=== PATIENT | male | born 1955 | race Caucasian/White ===

== ENCOUNTER 2017-04-24 21:49 | Emergency (ER) | payer OTHER ==
[~2017-04-24] VITALS: Ht 193 cm; Wt 87.3 kg
[~2017-04-24 21:49] MED LIST: ASPI81TA2 PO; LEVO125T2 PO
[2017-04-24 21:52] VITALS: BP 164/83; PULSE 70; RESP 16; O2SAT 100
--- NOTE | 2017-04-24 22:04 | ED.REPORT ---
HPI-General Illness Date of Service Apr 24, 2017 ED Provider: Garry Staley MD Pt is a 61 y.o. male with a hx of thyroidectomy secondary to cancer who presents to the ED c/o irregular palpitations onset tonight. The pt describes the palpitations as "fluttering" and states it only occurred when he was lying in his recliner. He states his symptoms have since resolved. Denies chest pain, SOB, cough, and edema. He denies a hx of CAD, UT, and smoking. Nursing Notes Stated Complaint: IRREGULAR HEART BEAT Chief Complaint: Dysrhythmia/Cardiac Nursing Notes Reviewed: Yes Allergies: Coded Allergies: No Known Allergies (Unverified Allergy, Unknown, 04/24/17) Scheduled Aspirin-Expunged Drug, Do Not Renew! (Aspirin-Expunged Drug, Do Not Renew!) 81 Mg Tab 81 MG PO DAILY Levothyroxine-Expunged Drug, Do Not Renew! (Synthroid-Expunged Drug, Do Not Renew!) 125 Mcg Tablet 0.125 MG PO DAILYAC 0.125 MG = 125 MCG General Time Seen by MD: 22:03 Chief Complaint Other (Palpitations, irregular) Hx Obtained From: Patient Arrived By: Walk-in Sudden in Onset?: Yes Onset Occurred: Just prior to arrival Symptom Duration: Intermittent Severity: Current: No pain currently Severity: Maximum: No pain Recent Healthcare: No recent doctor visit, No recent hospitalization Similar Sx Previous: No Past Medical History Past Medical History Reports: Cancer Reports: Thyroid disease Past Surgical History thyroidectomy Review of Systems Full Review of Systems Respiratory: Denies: Non-productive cough, Shortness of breath Cardiovascular: Reports: Palpitations (Irregular), Denies: Chest pain, Edema Complete sys rev & neg: except as marked. Physical Exam Vital Signs Vital Signs Date Time Temp Pulse Resp B/P Pulse Ox O2 Delivery O2 Flow Rate FiO2 04/25/17 01:52 36.4 61 16 148/76 96 Room Air 04/25/17 01:11 62 12 139/77 99 Room Air 04/24/17 23:40 64 14 136/73 100 Room Air 04/24/17 21:52 36.4 70 16 164/83 100 Room Air Initial VS: Reviewed Abdomen / GI: No distention Extremities: Vascular intact, Neuro intact Skin: Warm, Dry, No cyanosis Neurologic: Alert, Oriented, Nonfocal Psychiatric: Mood/affect normal, Behavior normal, Normal thought content General/Constitutional: Awake, Alert, No acute distress, Well appearing, Well developed, Well hydrated, Well nourished, Not toxic appearing Head / Eyes: Atraumatic, Normocephalic, PERRL Respiratory / Chest: Atraumatic, Breath sounds NL, Breath sounds = bilat, No respiratory distress Cardiovascular: Heart rate NL, Regular rhythm, Heart sounds NL, No gallop, No murmurs, No rubs, Cap refill not delayed, Peripheral circulation NL Interpretation & Diagnostics Lab Results Interpretation Result Diagram: 04/24/17 2333 04/24/17 2333 Test 04/24/17 23:33 White Blood Count 4.2th/mm3 (3.8-10.1) Red Blood Count 4.72mil/mm3 (4.40-5.80) Hemoglobin 14.5g/dL (13.8-17.2) Hematocrit 42.1% (41.0-50.0) Mean Corpuscular Volume 89.2fL (81-100) Mean Corpuscular Hemoglobin 30.7pg (27.0-35.0) Mean Corpuscular Hemoglobin Concent 34.4% (32.0-37.0) Red Cell Distribution Width 12.2% (12.3-15.4) Platelet Count 143bil/L (150-400) Neutrophils (%) (Auto) 61.0% (40-74) Lymphocytes (%) (Auto) 22.2% (14-46) Monocytes (%) (Auto) 11.6% (4-12) Eosinophils (%) (Auto) 4.7% (0-5) Basophils (%) (Auto) 0.5% (0-3) Sodium Level 141mEq/L (134-144) Potassium Level 3.8mEq/L (3.5-5.2) Chloride Level 103mEq/L (97-108) Carbon Dioxide Level 22mmol/L (18-29) Blood Urea Nitrogen 25mg/dL (8-27) Creatinine 0.87mg/dL (0.76-1.27) Estimat Glomerular Filtration Rate 94mL/min (>59) Glucose Level 125mg/dL (60-99) Calcium Level 9.4mg/dL (8.5-10.1) Magnesium Level 2.1mg/dL (1.6-2.6) Total Bilirubin 0.3mg/dL (0.0-1.2) Aspartate Amino Transf (AST/SGOT) 18U/L (0-50) Alanine Aminotransferase (ALT/SGPT) 10U/L (0-44) Alkaline Phosphatase 69U/L (25-160) Troponin T < 0.010ug/L (0.0-0.011) Pro-B-Type Natriuretic Peptide 32.52pg/mL (0-210) Total Protein 6.6g/dL (6.4-8.4) Albumin 4.3g/dL (3.4-5.0) Thyroid Stimulating Hormone (TSH) 1.430uIU/mL (0.450-4.500) Free Thyroxine 1.14ng/dL (0.82-1.77) Hold Iniguez Top Tube Received (Received) General Lab Results Interp 1: Labs reviewed and NL ECG Interpretation ECG Interpretation: Incomplete RBB and LAFB Time: 22:08 Interpreted by: ED physician Normal ECG Interpretation: Normal rate (66), Normal sinus rhythm, No acute ischemic changes Re-Eval/Medical Decision Med Decision/Clinical Course Generally healthy 61-year-old presents with palpitations. An observation period here revealed no extrasystoles at all. Labs are unremarkable. His exam is normal. He is a healthy active man without risk factors for cardiac disease. Uncertain etiology for his palpitations, but no electrolyte abnormalities or other abnormalities noted. Follow up with PCP. Consider Holter if they remain troublesome. Source of Hx: Old records Time of Eval: 01:41 Re-Evaluation/Progress Note: Pt rechecked. Discussed lab results and plan for discharge, pt understands and agrees with plan. Counseled Regarding: Diagnosis Discharge & Departure Primary Impression: Palpitations Disposition: Home Discharge Condition All VS Reviewed: Yes Additional Instructions: Your period of observation here did not reveal any extra beats. You may be having ventricular extrasystoles, which are common and normal. He may be having supraventricular extrasystoles, also white common and normal. We did not detect any dangerous dysrhythmias. Labs are likewise normal. Your thyroid functions appear normal. Potassium magnesium are also normal, and we have no evidence of significant abnormality requiring intervention. Follow-up with your doctor in the office. If you continue to be symptomatic, a Holter exam can be helpful. Your doctor can arrange that through the office. Return any time for chest pain, frequent extra beats, shortness of breath, or any other new symptoms of concern. Referrals: Epifanio Butler MD (PCP) Karina Attestation Portions of this note were transcribed by Jovani Ocasio. I, Dr. Staley personally performed the history, physical exam and medical decision-making; I reviewed and confirmed the accuracy of the information in the transcribed note. Signed by: Karina Richardson, 04/25/17 and 0143 copies to: Epifanio Butler MD, Christopher W MD Apr 24, 2017 22:04 OJVANI OCASIO Apr 24, 2017 22:12
[2017-04-24 23:40] VITALS: BP 136/73; PULSE 64; RESP 14; O2SAT 100
[2017-04-24 23:50] LABS: BASOPHILS % (AUTO) 0.5 % (0-3); EOSINOPHILS % (AUTO) 4.7 % (0-5); MONOCYTES % (AUTO) 11.6 % (4-12); Mean Corpuscular Hemoglobin 30.7 pg (27.0-35.0); Mean Corpuscular Volume 89.2 fL (81-100); Platelet Count 143 bil/L (150-400)
[2017-04-25 00:59] LABS: Magnesium 2.1 mg/dL (1.6-2.6); TROPONIN T < 0.010 ug/L (0.0-0.011)
[2017-04-25 01:11] VITALS: BP 139/77; PULSE 62; RESP 12; O2SAT 99
[2017-04-25 01:52] VITALS: BP 148/76; PULSE 61; RESP 16; O2SAT 96
== END 2017-04-25 01:53 | disposition home or self-care (01) ==
LOC: SED 21:49
DX: R00.2 Palpitations (principal); Z90.89 Acquired absence of other organs; Z85.850 Personal history of malignant neoplasm of thyroid; Z79.82 Long term (current) use of aspirin